=== PATIENT | female | born 1950 | race Caucasian/White ===

== ENCOUNTER 2023-08-20 19:39 | Outpatient (REF) | payer MEDICARE, MEDICAID, SELFPAY ==
[2023-08-20 19:56] LABS: Basophils Percent Auto 0.1 % (0.2-2.0); Eosinophils Absolute Auto 0.1 10^3/uL (0.0-0.7); Eosinophils Percent Auto 0.8 % (0.9-7.0); Hematocrit 36.8 % (36.0-48.0); Hemoglobin 11.4 g/dL (12.0-16.0); Immature Granulocytes Abs Auto 0.03 10^3/uL (0.00-0.03); Immature Granulocytes Pct Auto 0.3 % (0.0-0.5); Lymphocytes Absolute Auto 0.9 10^3/uL (1.2-3.8); Lymphocytes Percent Auto 9.5 % (20.5-60.0); Mean Corpuscular Hemoglobin 28.6 pg (26.7-34.0); Mean Corpuscular Volume 92.2 fL (81.0-99.0); Mean Platelet Volume 10.3 fL (9.5-13.5); Monocytes Absolute Auto 0.4 10^3/uL (0.3-0.8); Neutrophils Absolute Auto 7.9 10^3/uL (1.4-6.5); Neutrophils Percent Auto 85.3 % (43.0-75.0); Platelet Count 325 10^3/uL (150-450); Red Blood Count 3.99 10^6/uL (4.20-5.40); White Blood Count 9.3 10^3/uL (4.0-11.0)
[2023-08-20 20:13] LABS: Alanine Aminotransferase 41 U/L (14-59); Albumin Level 3.2 g/dL (3.4-5.0); Alkaline Phosphatase 177 U/L (46-116); Anion Gap 13.3; Aspartate Amino Transferase 17 U/L (15-37); BUN Creatinine Ratio 38.8; Bilirubin Total 0.4 mg/dL (0.2-1.0); Calcium 8.2 mg/dL (8.5-10.1); Carbon Dioxide 25.6 mmol/L (21.0-32.0); Chloride 101 mmol/L (98-107); Estimated GFR (African America 45 (>=60); Estimated GFR (Non-African Ame 37 (>=60); Globulin 3.1 g/dL; Glucose 284 mg/dL (74-106); Potassium 4.9 mmol/L (3.5-5.1); Sodium 135 mmol/L (136-145); Total Protein 6.3 g/dL (6.4-8.2)
== END 2023-08-20 19:40 | disposition home or self-care (01) ==
LOC: LAB 19:39
PROVIDERS: Visit Provider Student in an Organized Health Care Education/Training Program
DX: R06.00 Dyspnea, unspecified (principal)
CPT/HCPCS: 36415; 80053; 83880; 85025

== ENCOUNTER 2023-11-30 19:38 | Emergency (ER) | payer MEDICARE, SELFPAY ==
[2023-11-30 19:45] VITALS: BP 158/78; PULSE 89; TEMP 36.3; O2SAT 95
--- NOTE | 2023-11-30 19:54 | XR_ITS ---
The [address] [address] Patient Name: CELESTE WADSWORTH MRN: [id number] date: 1950 Sex: F Assigned Patient Location: ER Current Patient Location: ER Accession/Order Number: [id number] Exam Date: 11/30/2023 20:40 Report Date: 11/30/2023 22:14 At the request of: ONELIA MAI Procedure: XR femur LT 2V XR femur LT 2V: HISTORY: Pain in leg Pain in leg COMPARISON: Left knee x-ray dated 10/03/2015.. TECHNIQUE: 4 views of the left femur are submitted. FINDINGS: BONES/JOINT SPACES: There is increased soft tissue attenuation contributing to image degradation of the proximal left femur. Subtle fractures may be missed. No acute displaced fractures present in the left femur. Postsurgical changes are present from arthrodesis of the left knee with spacer material present. There is lucency surrounding the femoral hardware indicative of loosening. SOFT TISSUES: The soft tissues are unremarkable. XR/XR femur LT 2V IMPRESSION: No acute displaced fracture of the left femur. There is evidence of loosening of hardware in the left femur. Electronically authenticated by: SAUMYA DUMONT Date: 11/30/2023 22:14
--- NOTE | 2023-11-30 19:54 | XR_ITS ---
The [address] [address] Patient Name: CELESTE WADSWORTH MRN: [id number] date: 1950 Sex: F Assigned Patient Location: ER Current Patient Location: ED.MAIN Accession/Order Number: [id number] Exam Date: 11/30/2023 20:40 Report Date: 11/30/2023 21:57 At the request of: ONELIA MAI Procedure: XR tibia fibula LT 2V EXAM: XR tibia fibula LT 2V , 11/30/2023 HISTORY: leg pain COMPARISON: Previous x-ray from 2016. TECHNIQUE: X-rays of the left tibia and fibula, 4 views. FINDINGS: Fixation hardware is seen across the left knee joint with underlying chronic bony changes. No acute fracture or dislocation is seen. Mild soft tissue swelling. Mild degenerative changes in the left ankle. Subcutaneous calcifications. XR/XR tibia fibula LT 2V IMPRESSION: No fracture or dislocation left tibia and fibula. Fixation hardware across the left knee and mild degenerative changes left ankle. Electronically authenticated by: OCTAVIA THOMAS Date: 11/30/2023 21:57
--- NOTE | 2023-11-30 19:56 | ED_ITS ---
HPI HPI - Extremity Injury (Lower) General Chief Complaint: Extremity Injury, Lower Stated Complaint: fall wound check Time Seen by Provider: 11/30/23 19:46 Source: patient Mode of arrival: Wheelchair Limitations: physical limitation History of Present Illness HPI Narrative: Patient is a 73-year-old female with a history of lung and breast cancer presents to the emergency department for reevaluation of an open blistered area to the right anterior tibia. Patient states she fell several days ago and scraped a blistered area to the right anterior tibia. She states she saw her PCP today, they reevaluated the area and referred patient to wound care but the patient's nieces wanted her evaluated tonight because they feel the area is worse. No fevers or vomiting. Patient further complains of pain in the left lower extremity since September when she fell, she states that the primary care office ordered the wrong x-rays for her, she states that she has diffuse pain of the knee and they ordered hip x-rays. No medications taken prior to arrival. Related Data Previous Rx's ?Medication ?Instructions ?Recorded doxycycline hyclate 100 mg tablet 100 mg PO BID 7 days #14 tabs 11/30/23 oxycodone-acetaminophen 5 mg-325 1 tab PO Q6H PRN pain 2 days #10 11/30/23 mg tablet (Percocet) tabs Allergies Allergy/AdvReac Type Severity Reaction Status Date / Time codeine AdvReac Intermediate Unknown Verified 11/30/23 19:55 lisinopril AdvReac Intermediate Cough Verified 11/30/23 19:55 sulfamethoxazole AdvReac Mild Rash Verified 11/30/23 19:55 [From Bactrim] trimethoprim [From Bactrim] AdvReac Mild Rash Verified 11/30/23 19:55 Opioid HPI Opioid Management Most Recent Pain and Opioid Data: No Data to Display Review of Systems ROS Constitutional Denies: fever or chills Ears, nose, mouth, and throat Denies: throat pain or nasal congestion Respiratory Denies: shortness of breath Gastrointestinal Denies: nausea or vomiting Integumentary/Breast Reports: redness, skin pain, skin tenderness and sores; Denies: rash Hematologic/Lymphatic Reports: easy bruising and easy bleeding Exam Narrative Exam Narrative: Gen.: Awake, alert, in no distress Head: Normocephalic, atraumatic ENT: Moist mucous membranes Respiratory: No respiratory distress Extremities: Left lower extremity does not flex at the knee, large well-healed surgical incision over the left anterior leg. Right anterior tibia with a large open blistered area that is ecchymotic, mild surrounding raw, erythematous skin with no circumferential erythema or red streaking. Psych: Normal mood and affect Neuro: No focal neuro deficit Skin: Warm, dry Constitutional Vital Signs, click to edit/add: Last Vital Signs Temp 97.4 F L 11/30/23 19:45 Pulse 89 11/30/23 19:45 Resp 22 H 11/30/23 19:45 BP 158/78 H 11/30/23 19:45 Pulse Ox 95 11/30/23 19:45 O2 Del Method Nasal Cannula 11/30/23 19:45 O2 Flow Rate 2 11/30/23 19:45 Course Vital Signs Vital signs: Vital Signs Temperature 97.4 F L 11/30/23 19:45 Pulse Rate 89 11/30/23 19:45 Respiratory Rate 22 H 11/30/23 19:45 Blood Pressure 158/78 H 11/30/23 19:45 Pulse Oximetry 95 11/30/23 19:45 Oxygen Delivery Method Nasal Cannula 11/30/23 19:45 Oxygen Delivery Flow Rate 2 11/30/23 19:45 Temperature 97.4 F L 11/30/23 19:45 Pulse Rate 89 11/30/23 19:45 Respiratory Rate 22 H 11/30/23 19:45 Blood Pressure 158/78 H 11/30/23 19:45 Pulse Oximetry 95 11/30/23 19:45 Oxygen Delivery Method Nasal Cannula 11/30/23 19:45 Oxygen Delivery Flow Rate 2 11/30/23 19:45 MDM - Extremity Injury (Lower) MDM Narrative Medical decision making narrative: Labs show elevated inflammatory markers, normal white blood cell count. Vital signs are unremarkable. 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 Patient discharged on doxycycline with wound care instructions, I do not appreciate any significant cellulitis at this time. Follow-up with wound care and return to the ER if symptoms change or worsen. Short course of analgesics given for home. SUPERVISED APC VISIT, PHYSICIAN ATTESTATION: Based on the medical record the care appears appropriate. ? Medical Records Attestation: I reviewed the patient's medical records. Lab Data Attestation: I reviewed the patient's lab results. Discharge Plan Discharge Stand Alone Forms: Portal Instructions Chief Complaint: Extremity Injury, Lower Clinical Impression: Wound of right leg Patient Disposition: Home, Self-Care Time of Disposition Decision: 21:36 Condition: Good Prescriptions / Home Meds: New oxycodone-acetaminophen [Percocet] 5-325 mg tablet 1 tab PO Q6H PRN (Reason: pain) 2 Days Qty: 10 0RF Rx Instructions: DX: M79.604 doxycycline hyclate 100 mg tablet 100 mg PO BID 7 Days Qty: 14 0RF Print Language: Setswana Instructions: Acute Wounds (ED) Referrals: CORRINA LUJAN [Primary Care Provider] - 1 week Discharge Date/Time: 11/30/23 22:17
[2023-11-30 20:32] LABS: Basophils Percent Auto 0.7 % (0.2-2.0); Eosinophils Absolute Auto 0.2 10^3/uL (0.0-0.7); Eosinophils Percent Auto 2.9 % (0.9-7.0); Hematocrit 29.8 % (36.0-48.0); Hemoglobin 9.5 g/dL (12.0-16.0); Immature Granulocytes Abs Auto 0.02 10^3/uL (0.00-0.03); Immature Granulocytes Pct Auto 0.3 % (0.0-0.5); Lymphocytes Absolute Auto 1.8 10^3/uL (1.2-3.8); Lymphocytes Percent Auto 29.9 % (20.5-60.0); Mean Corpuscular HGB Conc 31.9 g/dL (29.9-35.2); Mean Corpuscular Hemoglobin 28.7 pg (26.7-34.0); Mean Platelet Volume 10.4 fL (9.5-13.5); Monocytes Absolute Auto 0.5 10^3/uL (0.3-0.8); Monocytes Percent Auto 8.2 % (1.7-12.0); Neutrophils Absolute Auto 3.5 10^3/uL (1.4-6.5); Platelet Count 162 10^3/uL (150-450); Red Blood Count 3.31 10^6/uL (4.20-5.40)
[2023-11-30 20:33] LABS: pH VBG 7.415 (7.330-7.430)
[2023-11-30 20:38] LABS: Erythrocyte Sedimentation Rate 69 mm/hr (<=30)
[2023-11-30 20:51] LABS: Alanine Aminotransferase 16 U/L (14-59); Albumin Globulin Ratio 0.8; Albumin Level 3.2 g/dL (3.4-5.0); Alkaline Phosphatase 151 U/L (46-116); Anion Gap 14.4; Aspartate Amino Transferase 12 U/L (15-37); Bilirubin Total 0.5 mg/dL (0.2-1.0); C Reactive Protein 3.34 mg/dL (<=0.50); Calcium 8.7 mg/dL (8.5-10.1); Carbon Dioxide 25.5 mmol/L (21.0-32.0); Chloride 103 mmol/L (98-107); Estimated GFR (African America 34 (>=60); Estimated GFR (Non-African Ame 28 (>=60); Globulin 4.2 g/dL; Glucose 127 mg/dL (74-106); Potassium 4.9 mmol/L (3.5-5.1); Sodium 138 mmol/L (136-145); Total Protein 7.4 g/dL (6.4-8.2)
[2023-11-30] MEDS: OXYCODONE HCL/ACETAMINOPHEN 5MG/325MG 1 TAB PO ×2 (20:53→22:08)
[2023-11-30 20:58] LABS: BUN Creatinine Ratio 31.3
[2023-11-30] MEDS: DOXYCYCLINE MONOHYDRATE 100 MG CAPSULE PO (21:50)
[2023-11-30 22:16] VITALS: BP 148/72
== END 2023-11-30 22:17 | disposition home or self-care (01) ==
PROVIDERS: Physician Assistant; Emergency Provider Internal Medicine; PCP Internal Medicine
DX: S81.801A Unspecified open wound, right lower leg, initial encounter (principal); Z85.118 Personal history of other malignant neoplasm of bronchus and lung; Z85.3 Personal history of malignant neoplasm of breast; W19.XXXA Unspecified fall, initial encounter
CPT/HCPCS: 36415; 73552; 73590; 80053; 82800; 85025; 85652; 86140; 99284